=== PATIENT | female | born 1950 | race Caucasian/White ===

== ENCOUNTER 2016-06-27 13:40 | Inpatient (IN) | payer MEDICARE ==
[~2016-06-27] VITALS: Ht 182.9 cm; Wt 81.6 kg
--- NOTE | ~2016-06-27 | WND ---
ADMIT: 06/30/2016 RM/LOC: [id number] MR#: [id number] [address] [id number] GEORGINA CASON [address] [place] [address] Wound Care Clinic SEX: F AGE: 66 : 1950 DATE OF VISIT: 07/06/2016 TIME IN: 1600 TIME OUT: 1610 REASON FOR VISIT: Evaluation and treatment of buttock ulceration. This is a request for wound care from Dr. Castaneda. HISTORY OF PRESENT ILLNESS: This is a 66-year-old female, who has a history of metastatic pancreatic disease. She has known metastasis to brain and left scapula and right humeral head. Prior to her cancer diagnosis, she was otherwise healthy and did not have any chronic medical problems. She was admitted to [facility] in May 2016 because of weakness. It was noted that she had MSSA central venous catheter port infection. She had resolved sepsis and metastatic cancer as mentioned previously. She had a removal of the right subclavian port. She was transferred to half-way unit on 06/30/2016. Upon admission, it was noted that she had stage II pressure ulcerations on her coccyx area, one that measures 1 x 1 cm and second, 1 x 2 cm. Nursing staff has been diligent with pressure relief. She is on a low air loss mattress, chair air cushion in her chair, and they have been using Sensi-Care Aloe to the areas. PAST MEDICAL HISTORY: Prior to her cancer diagnosis, she was healthy with no chronic problems. Otherwise, as delineated in history of present illness. ALLERGIES: No known medication allergies. CURRENT MEDICATIONS: Per the MAR. Please see the MAR for further details. 1. Caltrate. 2. Decadron. 3. Lasix. 4. MiraLAX. 5. Namenda. 6. OxyContin. 7. Senokot. 8. Therapeutic multivitamins. 9. Duragesic patch. 10.Normal saline. 11.Oxacillin. PRN MEDICATIONS 1. Dilaudid. 2. Lidocaine viscous. 3. Maalox. 4. Milk of magnesia. 5. MiraLAX. 6. Tums. 7. Tylenol. 8. Dulcolax. 9. Tylenol suppositories. ADMIT: 06/30/2016 RM/LOC: [facility] MR#: [id number] [place], [place] [id number] CASONGEORGINA SANABRIA [address] [place] [address] Wound Care Clinic SEX: F AGE: 66 : 1950 SOCIAL HISTORY: She is retired. She lives in [place] with her . 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 Former tobacco user, but quit over 30 years ago. Occasional alcohol. No recreational drug use. FAMILY HISTORY: Mother with lymphoma. REVIEW OF SYSTEMS: She is examined in her half-way unit, where she is awake and alert. She is currently being evaluated by hospice. She denies any recent fever or chills. No nausea or vomiting. No cough, cold, or chest pain. Her appetite is decreased. She states she does notice some tenderness in her bottom, but she thinks it has improved. PHYSICAL EXAMINATION: VITAL SIGNS: Temperature 97.1, pulse 107, respirations 20, blood pressure 151/83, O2 sats on room air is 98%. Focused exam to her sacral buttocks, coccyx area shows blanchable erythema on her buttocks, where she had been lying. On her left buttock is a resolving bruise not over an area of bony prominences. To her coccyx area is a linear slit that measures 0.3 x 0.2 with a depth of 0.1 with a red moist wound base. No surrounding erythema or induration. The previous mentioned pressure ulcerations are healed. ASSESSMENT: Healing stage II pressure ulceration, coccyx. TREATMENT PLAN: We will continue with the current treatment methods of pressure relief, chair air cushion, low air loss mattress, position changes. Also, continue with the Aloe to the area at least 3 times a day and after every stooling. She has recently started radiation treatment to her spine, which can also affect wound healing. Thank you for this referral, and Wound will continue to follow while she is at half-way. Phoebe Dunlap APRN/ victor m JOB #: [id number] CC: Claudio Castaneda, Attending Physician UNKNOWN, Family Physician
--- NOTE | 2016-07-01 15:01 | NUR ---
PATIENT NOTE GEORGINA HAS BEEN ADMITTED TO [facility] FROM [facility] WHERE SHE WAS BEING TREATED FOR SEPSIS AND WEAKNESS. SHE WILL BE RECEIVING I.V.A.B THERAPY ALONG WITH PHYSICAL AND OCCUPATIONAL THERAPY, THEREFORE SHE IS HERE UNDER HER MEDICARE BENEFITS. GEORGINA IS A ALERT, ORIENTED AND VERY PLEASANT 66 YEAR OLD WHO IS BATTLING PANCREATIC CA WITH METS TO LIVER,LUNG AND BONE. SHE LIVES WITH HER DIANELYS IN [place] AND THEIR GOAL/PLAN IS TO RETURN TO HOME WHEN STRONGER. SOCIAL WORK WILL FOLLOW AND ASSIST WITH D/C PLANNING AND WITH CONCERNS OR NEEDS THAT MAY ARISE.
--- NOTE | 2016-07-08 11:30 | NUR ---
PATIENT NOTE VISITED WITH MORNING WITH DIANELYS AND EXPLAINED TO HIM GEORGINA'S MEDICARE COVERAGE WILL BE ENDING 07/14. HER LAST I.V.A.B THERAPY WILL BE GIVEN ON 07/14 AND HER RADIATION THERAPY IS ALSO DONE ON 07/14. PHYSICAL THERAPY HAS A GOAL DATE OF 07/15 BUT DUE TO HER OVERALL MEDICAL CONDITION P.T. AND O.T ARE NOT ABLE TO PROGRESS HER PHYSICAL ABILITIES. I EXPLAINED TO HIM THAT WE ARE $688.00 A DAY ONCE MEDICARE COVERAGE ENDS. HE WANTED TO VISIT WITH HIS FAMILY BEFORE MAKING A DECISION. I TOLD HIM THAT IT WAS MY JOB TO ASSIST HIM WITH WHATEVER DECISION THEY MAKE. HE WAS THANKFUL AND STATED THAT HE WOULD CONTACT ME.
== END 2016-07-29 00:32 | disposition expired | DRG 314 ==
LOC: SNU 13:40
PROVIDERS: ADMIT Family Medicine
PROC: F08Z4ZZ Home Management Treatment (ICD-10-PCS; principal; 2016-06-30)
PROC: F06ZDZZ Swallowing Dysfunction Treatment (ICD-10-PCS; principal; 2016-06-30)
PROC: F07Z9ZZ Gait Training/Functional Ambulation Treatment (ICD-10-PCS; principal; 2016-06-30)
DX: T80.211A Bloodstream infection due to central venous catheter, initial encounter (principal); A41.9 Sepsis, unspecified organism; L89.152 Pressure ulcer of sacral region, stage 2; C78.01 Secondary malignant neoplasm of right lung; E44.0 Moderate protein-calorie malnutrition; C25.9 Malignant neoplasm of pancreas, unspecified; C78.02 Secondary malignant neoplasm of left lung; C79.31 Secondary malignant neoplasm of brain; C79.51 Secondary malignant neoplasm of bone; C78.7 Secondary malignant neoplasm of liver and intrahepatic bile duct; N39.0 Urinary tract infection, site not specified; G89.3 Neoplasm related pain (acute) (chronic); Z66 Do not resuscitate